=== PATIENT | female | born 1980 | race Caucasian/White ===

== ENCOUNTER 2024-03-08 10:36 | Inpatient (IN) | payer BC, OTHER ==
[2024-03-08] MEDS ORDERED: Magnesium 2 GM/50 ML BAG (IN WATER) ONE (11:09)
[2024-03-08] MEDS ORDERED: Ipratropium/Albuterol 3 ML NEB ONE (11:09)
[2024-03-08 11:25] LABS: #Basophils 0.09 10x3/uL (0.0-0.2); %Basophils 0.6 % (0.0-1.0); %Eosinophils 0.8 % (0.0-10.0); %Lymphocytes 6.3 % (21.0-51.0); %Monocytes 3.7 % (0.0-10.0); %Neutrophils 88.3 % (42.0-75.0); Hematocrit 36.4 % (36.0-47.0); Hemoglobin 11.4 g/dL (12.0-16.0); Mean Corpuscular HGB CONC 31.3 g/dL (32.0-36.0); Mean Corpuscular Hemoglobin 27.3 pg (27.0-31.0); Mean Corpuscular Volume 87.1 fL (78.0-98.0); Mean Platelet Volume 9.1 fL (7.4-10.4); Platelet Count 404 10x3/uL (130-400); RBC Distribution Width 15.8 % (11.5-14.5); Red Blood Cell (RBC) Count 4.18 mill/uL (4.20-5.40)
[2024-03-08 11:30] LABS: Bacteria/HPF None Seen HPF (None Seen); Bilirubin Negative (Negative); Blood, Urine Negative (Negative); CAUTI Indications for Culture Fever or rigors; Clarity Clear (Clear); Glucose, Urine (Dipstick) Normal (Negative); Ketone, Urine Negative (Negative); Leukocyte Negative Leu/uL (Negative); Nitrite Negative (Negative); Protein, Urine (Dipstick) Negative (Neg-Trace); RBC/HPF 0-3 HPF (0-3); Specific Gravity, Urine 1.013 (1.002-1.036); Squamous Epithelial 0-3 HPF (0-3); Urobilinogen Normal mg/dL (Less than 2); WBC/HPF 0-3 HPF (0-3)
[2024-03-08 11:31] LABS: Urine Culture Reflex No No
[2024-03-08 11:39] LABS: ALT (SGPT) 20 U/L (8-55); AST (SGOT) 29 U/L (5-34); Albumin 3.8 g/dL (3.5-5.0); Alkaline Phosphatase 103 U/L (40-110); Anion Gap 19 mmol/L (10-20); BUN (Urea Nitrogen) 11 mg/dL (7.0-18.7); Bilirubin, Total 0.3 mg/dL (0.2-1.2); Calc. Creatinine Clearance 0 mL/min (70-130); Calcium 8.9 mg/dL (7.8-10.44); Carbon Dioxide 23 mmol/L (22-29); Chloride 101 mmol/L (98-107); Estimated GFR 111; Globulin 4.1 g/dL (2.4-3.5); Glucose 122 mg/dL (70-105); Potassium 3.8 mmol/L (3.5-5.1); Protein, Total 7.9 g/dL (6.0-8.3); Sodium 139 mmol/L (136-145)
[2024-03-08] MEDS ORDERED: Ketorolac Tromethamine 30 MG (1 mL) VIAL ONE (11:41)
[2024-03-08] MEDS ORDERED: Cefepime 2 GM VIAL ONE (11:41)
[2024-03-08] MEDS ORDERED: Acetaminophen 500 MG TAB ONE (11:41)
[2024-03-08 11:44] LABS: Troponin I Less than 0.010 ng/mL (< 0.028)
[2024-03-08 11:45] LABS: BHCG - Serum Negative (NEGATIVE); Pregs Control Background? CLEAR/WHITE (CLR/WHITE); Pregs Control Bar Appear? YES (CONTROL BAR)
[2024-03-08] MEDS ORDERED: Hydrocortisone Sod Succ/PF 100 mg/2 ml Vial ONE (11:55)
[2024-03-08] MEDS ORDERED: Guaifenesin DM 100-10/5 ML UDCUP PO PRN (13:23)
[2024-03-08] MEDS ORDERED: Calcium Carbonate 500 MG ChewTAB PO PRN (13:23)
[2024-03-08] MEDS ORDERED: Senokot S 8.6-50 MG TAB PO PRN (13:23)
[2024-03-08] MEDS ORDERED: Ondansetron PF 4 MG/2 ML Vial IVP PRN (13:23)
[2024-03-08 14:05] LABS: Lactic Acid 2.41 mmol/L (0.5-2.2)
[2024-03-08] MEDS ORDERED: Iopamidol-370 76% 500 ML MDV (1 ML CHARGE) ONE (14:08)
[2024-03-08] MEDS: Vancomycin (BATCH) 2.5 GM in Premix 1 BAG IVPB SCH (19:33)
[2024-03-08] MEDS: Cefepime 2 GM in Sodium Chloride 0.9% 100 ML IVPB SCH (19:33)
[2024-03-08 19:35] VITALS: BMI 41.9
[2024-03-08] MEDS: LevoFLOXacin 750 mg/D5W 750 MG in Premix 1 BAG IVPB SCH (19:40)
[2024-03-08] MEDS: Acetaminophen 325 MG TAB PO PRN (19:40)
[2024-03-08] MEDS: Carvedilol 6.25 MG TAB PO SCH (19:41)
[2024-03-08] MEDS: Sodium Chloride 0.9% 1,000 ML IV SCH (19:41)
[2024-03-08 21:17] LABS: Amphetamine Not Detected (NotDetected); Barbiturates Screen Not Detected (NotDetected); Benzodiazepine Screen Not Detected (NotDetected); Cocaine Metabolite Screen Not Detected (NotDetected); Methadone Not Detected (NotDetected); Methamphetamine Not Detected (NotDetected); Opiate Screen Detected (NotDetected); Oxycodone Screen Not Detected (NotDetected); Phencyclidine (PCP) Not Detected (NotDetected); THC/Cannabinoid Screen Not Detected (NotDetected); Tricyclic Screen Not Detected (NotDetected)
[2024-03-08 21:24] LABS: Legionella Urinary Ag Negative (Negative)
[2024-03-08 21:36] LABS: Strep pneumo Urine Ag NEGATIVE (NEGATIVE)
[2024-03-08 21:47] LABS: Influenza A by NAA Not Detected (NotDetected); Influenza B by NAA Not Detected (NotDetected); RSV by NAA Not Detected (NotDetected); SARS-CoV-2 NAA Rapid Test Not Detected (NotDetected)
[2024-03-09 04:48] LABS: #Basophils 0.05 10x3/uL (0.0-0.2); %Basophils 0.4 % (0.0-1.0); %Eosinophils 1.3 % (0.0-10.0); %Lymphocytes 13.1 % (21.0-51.0); %Monocytes 6.2 % (0.0-10.0); %Neutrophils 78.6 % (42.0-75.0); Hemoglobin 11.1 g/dL (12.0-16.0); Mean Corpuscular HGB CONC 31.7 g/dL (32.0-36.0); Mean Corpuscular Hemoglobin 27.5 pg (27.0-31.0); Mean Corpuscular Volume 86.6 fL (78.0-98.0); Mean Platelet Volume 9.2 fL (7.4-10.4); Platelet Count 360 10x3/uL (130-400); RBC Distribution Width 15.9 % (11.5-14.5); Red Blood Cell (RBC) Count 4.04 mill/uL (4.20-5.40)
[2024-03-09 05:08] LABS: Anion Gap 15 mmol/L (10-20); BUN (Urea Nitrogen) 6 mg/dL (7.0-18.7); Calc. Creatinine Clearance 201 mL/min (70-130); Carbon Dioxide 23 mmol/L (22-29); Chloride 108 mmol/L (98-107); Estimated GFR 111; Glucose 106 mg/dL (70-105); Potassium 3.2 mmol/L (3.5-5.1); Sodium 143 mmol/L (136-145)
[2024-03-09] MEDS ORDERED: HYDROcodone/Acetaminophen 5/325 mg Tablet PO PRN ×2 (08:08→08:14)
[2024-03-09] MEDS ORDERED: Non-Formulary Item 1 EACH (Albuterol 200 PUFF Inh) INH PRN (08:08)
[2024-03-09] MEDS ORDERED: Albuterol 200 PUFF (6.7GM INHALER) INH PRN (08:15)
[2024-03-09] MEDS ORDERED: DULoxetine 60 MG CAP PO SCH (09:00)
[2024-03-09] MEDS: Enoxaparin 40 MG (0.4 mL) SYRINGE SC SCH (09:05)
[2024-03-09] MEDS: DULoxetine 60 MG CAP PO SCH (09:05)
[2024-03-09] MEDS: Famotidine 20 MG TAB PO SCH (09:12)
[2024-03-09 17:03] VITALS: BP 187/119; TEMP 97.9
== END 2024-03-09 17:36 | disposition home or self-care (01) | DRG 871 ==
LOC: ERS 10:36 → ERHOLD 13:18 → 2NO 19:27
PROVIDERS: ADMIT Hospitalist; ATTEND Internal Medicine
DX: A41.50 Gram-negative sepsis, unspecified (principal); J15.69 Pneumonia due to other Gram-negative bacteria; J96.01 Acute respiratory failure with hypoxia; I10 Essential (primary) hypertension; M54.9 Dorsalgia, unspecified; F41.8 Other specified anxiety disorders; G89.29 Other chronic pain; Z98.890 Other specified postprocedural states; Z79.899 Other long term (current) drug therapy
CPT/HCPCS: 0241U; 36415; 71045; 71275; 80048; 80053; 80306; 81001; 83605; 83880; 84145; 84484; 84703; 85025; 85379; 87040; 87070; 87205; 87449; 87899; 93005; J0692; J1650; J1720; J1885; J1956; J3370; J3475; J7030; J7620; Q9967